=== PATIENT | female | born 1990 | race Asian ===

== ENCOUNTER 2016-06-17 23:23 | Inpatient (IN) | payer MEDICAID, OTHER ==
[~2016-06-17] VITALS: Ht 157.5 cm; Wt 76.2 kg
[~2016-06-17 23:23] MED LIST: BENZ1TAB10 PO; LITH8SOL PO; RISP3 PO; TOPI100 PO
[2016-06-18 00:04] LABS: BASOPHILS # (AUTO) 0.03 K/uL (0.00-0.20); BASOPHILS % (AUTO) 0.3 % (0.0-2.0); EOSINOPHILS # (AUTO) 0.27 K/uL (0.00-0.70); HEMATOCRIT 39.2 % (36-46); HEMOGLOBIN 13.1 g/dL (12.0-16.0); LYMPHOCYTES # (AUTO) 2.4 K/uL (1.0-4.8); MEAN CORPUSCULAR HEMOGLOBIN 32.1 pg (26.0-34.0); MEAN CORPUSCULAR HGB CONC 33.4 G/dL (31.0-37.0); MEAN CORPUSCULAR VOLUME 96 fL (80-100); MONOCYTES # (AUTO) 0.7 K/uL (0.1-1.0); MONOCYTES % (AUTO) 7.3 % (2.0-9.0); NEUTROPHILS # (AUTO) 6.8 K/uL (1.8-7.7); NEUTROPHILS % (AUTO) 66.9 % (40.0-70.0); PLATELET COUNT (AUTO) 212 K/uL (150-450); RED BLOOD CELL COUNT(AUTO) 4.08 MIL/uL (4.00-5.20); RED CELL DISTRIBUTION WIDTH 13.6 % (11.5-14.5); WHITE BLOOD COUNT (AUTO) 10.2 K/uL (4.5-11.0)
[2016-06-18 00:07] LABS: ANION GAP 12 mmol/L (8-16); CALCIUM, TOTAL 9.6 mg/dL (8.8-10.5); CARBON DIOXIDE 24 mmol/L (22-29); CHLORIDE 104 mmol/L (98-107); GLOMERULAR FILTR. RATE CALC > 60 mL/min (>60); POTASSIUM 3.7 mmol/L (3.5-5.1); SODIUM SERUM 140 mmol/L (136-145); UREA NITROGEN, BLOOD 10 mg/dL (7-18)
[2016-06-18 00:12] LABS: ALANINE AMINOTRANSFERASE 20 U/L (12-78); ASPARTATE AMINOTRANSFERASE 10 U/L (15-37); BILIRUBIN,TOTAL 0.4 mg/dL (0.1-1.0); TOTAL PROTEIN, SERUM 7.7 g/dL (6.4-8.2)
[2016-06-18] MEDS ORDERED: ZOLPIDEM TARTRATE 10 MG TABLET PO PRN (00:45)
[2016-06-18 05:58] VITALS: BP 101/69
[2016-06-18] MEDS ORDERED: PNEUMOCOCCAL VACCINE POLYVALENT 0.5 ML VIAL [PPSV23] IM ONE (06:00)
[2016-06-18 16:23] VITALS: BP 118/71
[2016-06-18] MEDS ORDERED: ACETAMINOPHEN 325 MG TABLET PO PRN (21:45)
[2016-06-19 07:07] VITALS: BP 100/60
[2016-06-19 07:58] VITALS: BP 118/69
[2016-06-19 08:02] LABS: HEMOGLOBIN A1C 4.6 % (4.5-6.2)
[2016-06-19 08:33] LABS: CHOL/HDL RATIO 4.7 (3.9-5.7); THYROID STIMULATING HORMONE 0.7 uIU/mL (0.36-3.74)
[2016-06-19] MEDS: LORazepam 2 MG TABLET PO PRN (12:55)
[2016-06-19] MEDS: OLANZapine 5 MG RAPDIS TABLET PO PRN (12:55)
[2016-06-19 16:00] VITALS: BP 122/63
[2016-06-20 06:38] VITALS: BP 114/60
[2016-06-20 08:54] VITALS: BP 100/50
[2016-06-20] MEDS: TOPIRAMATE 100 MG TABLET PO SCH ×2 (08:57→17:07)
[2016-06-20] MEDS: RisperiDONE 2 MG TABLET PO SCH ×2 (08:57→17:07)
[2016-06-20] MEDS: LITHIUM CITRATE SOLUTION 8 MEQ/5 ML [8 MEQ = 300 MG] UDCUP PO SCH ×3 (08:57→17:07)
[2016-06-20] MEDS: LORazepam 2 MG TABLET PO PRN ×2 (09:12→17:08)
[2016-06-20 16:20] VITALS: BP 106/65
[2016-06-21 06:54] VITALS: BP 102/68
[2016-06-21 08:29] VITALS: BP 100/62
[2016-06-21] MEDS: RisperiDONE 2 MG TABLET PO SCH ×2 (09:36→16:05)
[2016-06-21] MEDS: LORazepam 2 MG TABLET PO PRN (09:36)
[2016-06-21] MEDS: TOPIRAMATE 100 MG TABLET PO SCH ×2 (09:36→16:05)
[2016-06-21] MEDS: LITHIUM CITRATE SOLUTION 8 MEQ/5 ML [8 MEQ = 300 MG] UDCUP PO SCH ×3 (09:37→16:05)
[2016-06-21 16:25] VITALS: BP 105/69
[2016-06-22 05:23] VITALS: BP 104/63
[2016-06-22 08:02] VITALS: BP 108/66
[2016-06-22] MEDS: LITHIUM CITRATE SOLUTION 8 MEQ/5 ML [8 MEQ = 300 MG] UDCUP PO SCH ×3 (09:44→16:01)
[2016-06-22] MEDS: LORazepam 2 MG TABLET PO PRN (09:45)
[2016-06-22] MEDS: RisperiDONE 2 MG TABLET PO SCH ×2 (09:45→16:01)
[2016-06-22] MEDS: TOPIRAMATE 100 MG TABLET PO SCH ×2 (09:45→16:01)
[2016-06-22 16:07] VITALS: BP 100/76
[2016-06-23 07:19] VITALS: BP 110/78
[2016-06-23] MEDS: TOPIRAMATE 100 MG TABLET PO SCH ×2 (08:11→16:03)
[2016-06-23] MEDS: LITHIUM CITRATE SOLUTION 8 MEQ/5 ML [8 MEQ = 300 MG] UDCUP PO SCH ×3 (08:11→16:03)
[2016-06-23] MEDS: RisperiDONE 2 MG TABLET PO SCH ×2 (08:11→16:03)
[2016-06-23] MEDS: OLANZapine 5 MG RAPDIS TABLET PO PRN (08:12)
[2016-06-23 08:26] VITALS: BP 111/67
[2016-06-23 16:00] VITALS: BP 109/65
[2016-06-24 07:10] VITALS: BP 102/62
[2016-06-24] MEDS: LORazepam 2 MG TABLET PO PRN (08:01)
[2016-06-24] MEDS: LITHIUM CITRATE SOLUTION 8 MEQ/5 ML [8 MEQ = 300 MG] UDCUP PO SCH ×3 (08:02→16:32)
[2016-06-24] MEDS: TOPIRAMATE 100 MG TABLET PO SCH ×2 (08:02→16:32)
[2016-06-24] MEDS: OLANZapine 5 MG RAPDIS TABLET PO PRN (08:02)
[2016-06-24] MEDS: RisperiDONE 2 MG TABLET PO SCH ×2 (08:02→16:31)
[2016-06-25 05:49] VITALS: BP 112/74
[2016-06-25 08:14] VITALS: BP 140/59
[2016-06-25] MEDS: RisperiDONE 2 MG TABLET PO SCH ×2 (08:50→17:15)
[2016-06-25] MEDS: TOPIRAMATE 100 MG TABLET PO SCH ×2 (08:50→17:15)
[2016-06-25] MEDS: LITHIUM CITRATE SOLUTION 8 MEQ/5 ML [8 MEQ = 300 MG] UDCUP PO SCH ×3 (08:50→17:15)
[2016-06-25] MEDS: LORazepam 2 MG TABLET PO PRN (08:50)
[2016-06-25] MEDS: OLANZapine 5 MG RAPDIS TABLET PO PRN (08:50)
[2016-06-25 16:29] VITALS: BP 102/60
[2016-06-26 05:11] VITALS: BP 109/63
[2016-06-26 08:14] VITALS: BP 117/73
[2016-06-26] MEDS: LITHIUM CITRATE SOLUTION 8 MEQ/5 ML [8 MEQ = 300 MG] UDCUP PO SCH ×3 (08:35→16:41)
[2016-06-26] MEDS: RisperiDONE 2 MG TABLET PO SCH ×2 (08:35→16:41)
[2016-06-26] MEDS: TOPIRAMATE 100 MG TABLET PO SCH ×2 (08:35→16:41)
[2016-06-26 16:02] VITALS: BP 127/72
[2016-06-26] MEDS ORDERED: LORazepam 2 MG/ML VIAL ONE (17:24)
[2016-06-26] MEDS ORDERED: HALOPERIDOL LACTATE 5 MG/ML VIAL ONE (17:24)
[2016-06-26] MEDS ORDERED: DiphenhydrAMINE HCL 50 MG/ML VIAL ONE (17:24)
[2016-06-26] MEDS ORDERED: DiphenhydrAMINE HCL 50 MG/ML VIAL IM ONE (17:30)
[2016-06-26] MEDS ORDERED: LORazepam 2 MG/ML VIAL IM ONE (17:30)
[2016-06-26] MEDS ORDERED: HALOPERIDOL LACTATE 5 MG/ML VIAL IM ONE (17:30)
[2016-06-27 06:44] VITALS: BP 114/60
[2016-06-27 08:09] VITALS: BP 99/66
[2016-06-27] MEDS: RisperiDONE 3 MG TABLET PO SCH ×2 (09:05→16:26)
[2016-06-27] MEDS: TOPIRAMATE 100 MG TABLET PO SCH ×2 (09:05→16:26)
[2016-06-27] MEDS: LORazepam 2 MG TABLET PO PRN (09:05)
[2016-06-27] MEDS: LITHIUM CITRATE SOLUTION 8 MEQ/5 ML [8 MEQ = 300 MG] UDCUP PO SCH ×3 (09:05→16:26)
[2016-06-27 16:17] VITALS: BP 110/74
[2016-06-28 05:53] VITALS: BP 108/68
[2016-06-28 08:08] VITALS: BP 111/68
[2016-06-28] MEDS: IBUPROFEN 400 MG TABLET PO PRN (08:53)
[2016-06-28] MEDS: RisperiDONE 3 MG TABLET PO SCH ×2 (08:53→16:22)
[2016-06-28] MEDS: LORazepam 2 MG TABLET PO PRN (08:53)
[2016-06-28] MEDS: LITHIUM CITRATE SOLUTION 8 MEQ/5 ML [8 MEQ = 300 MG] UDCUP PO SCH ×3 (08:53→16:22)
[2016-06-28] MEDS: TOPIRAMATE 100 MG TABLET PO SCH ×2 (08:53→16:22)
[2016-06-28 16:00] VITALS: BP 124/65
[2016-06-29 07:14] VITALS: BP 129/78
[2016-06-29] MEDS: IBUPROFEN 400 MG TABLET PO PRN ×3 (07:22→17:22)
[2016-06-29 08:20] VITALS: BP 129/65
[2016-06-29] MEDS: LITHIUM CITRATE SOLUTION 8 MEQ/5 ML [8 MEQ = 300 MG] UDCUP PO SCH ×3 (08:35→16:04)
[2016-06-29] MEDS: TOPIRAMATE 100 MG TABLET PO SCH ×2 (08:36→16:04)
[2016-06-29] MEDS: RisperiDONE 3 MG TABLET PO SCH ×2 (08:36→16:04)
[2016-06-29] MEDS: LORazepam 2 MG TABLET PO PRN ×2 (09:15→17:20)
[2016-06-29 13:40] VITALS: BP 122/73
[2016-06-29 16:00] VITALS: BP 110/66
[2016-06-30 05:57] VITALS: BP 112/70
[2016-06-30] MEDS: IBUPROFEN 400 MG TABLET PO PRN ×2 (06:08→14:40)
[2016-06-30] MEDS: LITHIUM CITRATE SOLUTION 8 MEQ/5 ML [8 MEQ = 300 MG] UDCUP PO SCH ×3 (08:44→16:44)
[2016-06-30] MEDS: TOPIRAMATE 100 MG TABLET PO SCH ×2 (08:44→16:44)
[2016-06-30] MEDS: RisperiDONE 3 MG TABLET PO SCH ×2 (08:44→16:44)
[2016-06-30] MEDS: LORazepam 2 MG TABLET PO PRN (09:09)
[2016-06-30 09:27] VITALS: BP 107/57
[2016-06-30 14:42] VITALS: BP 110/64
[2016-06-30 16:19] VITALS: BP 110/65
[2016-07-01 03:23] VITALS: BP 105/67
[2016-07-01] MEDS: RisperiDONE 3 MG TABLET PO SCH ×2 (08:55→16:34)
[2016-07-01] MEDS: IBUPROFEN 400 MG TABLET PO PRN (08:55)
[2016-07-01] MEDS: TOPIRAMATE 100 MG TABLET PO SCH ×2 (08:55→16:34)
[2016-07-01] MEDS: LITHIUM CITRATE SOLUTION 8 MEQ/5 ML [8 MEQ = 300 MG] UDCUP PO SCH ×3 (08:55→16:34)
[2016-07-01] MEDS: LORazepam 2 MG TABLET PO PRN (08:56)
[2016-07-01 16:00] VITALS: BP 103/65
[2016-07-02 05:23] VITALS: BP 111/71
[2016-07-02] MEDS: LITHIUM CITRATE SOLUTION 8 MEQ/5 ML [8 MEQ = 300 MG] UDCUP PO SCH ×3 (08:53→16:30)
[2016-07-02] MEDS: RisperiDONE 3 MG TABLET PO SCH ×2 (08:53→16:30)
[2016-07-02] MEDS: TOPIRAMATE 100 MG TABLET PO SCH ×2 (08:54→16:30)
[2016-07-02] MEDS: LORazepam 2 MG TABLET PO PRN (08:54)
[2016-07-02 09:24] VITALS: BP 110/76
[2016-07-02 16:07] VITALS: BP 113/69
[2016-07-03 06:44] VITALS: BP 114/71
[2016-07-03] MEDS: RisperiDONE 3 MG TABLET PO SCH ×2 (08:17→16:14)
[2016-07-03] MEDS: LITHIUM CITRATE SOLUTION 8 MEQ/5 ML [8 MEQ = 300 MG] UDCUP PO SCH ×3 (08:17→16:14)
[2016-07-03] MEDS: TOPIRAMATE 100 MG TABLET PO SCH ×2 (08:17→16:14)
[2016-07-03] MEDS: LORazepam 2 MG TABLET PO PRN (08:36)
[2016-07-03 08:40] VITALS: BP 116/62
[2016-07-03] MEDS ORDERED: PERMETHRIN 5% 60 GM CREAM TP ONE (10:00)
[2016-07-03] MEDS ORDERED: PERMETHRIN 1% 60 ML LOTION TP ONE (12:00)
[2016-07-03 16:31] VITALS: BP 121/67
[2016-07-04 06:31] VITALS: BP 108/69
[2016-07-04] MEDS: LITHIUM CITRATE SOLUTION 8 MEQ/5 ML [8 MEQ = 300 MG] UDCUP PO SCH ×3 (08:13→16:33)
[2016-07-04] MEDS: TOPIRAMATE 100 MG TABLET PO SCH ×2 (08:13→16:33)
[2016-07-04] MEDS: RisperiDONE 3 MG TABLET PO SCH ×2 (08:13→16:33)
[2016-07-04 08:34] VITALS: BP 118/58
[2016-07-04] MEDS: LORazepam 2 MG TABLET PO PRN (09:09)
[2016-07-04 16:25] VITALS: BP 102/60
[2016-07-05 04:00] VITALS: BP 114/78
[2016-07-05 08:22] VITALS: BP 121/69
[2016-07-05] MEDS: TOPIRAMATE 100 MG TABLET PO SCH ×2 (08:56→16:10)
[2016-07-05] MEDS: RisperiDONE 3 MG TABLET PO SCH ×2 (08:56→16:10)
[2016-07-05] MEDS: LITHIUM CITRATE SOLUTION 8 MEQ/5 ML [8 MEQ = 300 MG] UDCUP PO SCH ×3 (08:57→16:10)
[2016-07-05 16:10] VITALS: BP 113/71
[2016-07-05] MEDS ORDERED: *CLINICAL-RX DOSING [ENTER DRUG IN COMMENTS] CLINICAL ONE (17:30)
[2016-07-06 05:19] VITALS: BP 123/84
[2016-07-06] MEDS: TOPIRAMATE 100 MG TABLET PO SCH ×2 (08:08→16:22)
[2016-07-06] MEDS: RisperiDONE 3 MG TABLET PO SCH ×2 (08:08→16:22)
[2016-07-06] MEDS: OLANZapine 5 MG RAPDIS TABLET PO PRN (08:08)
[2016-07-06] MEDS: LITHIUM CITRATE SOLUTION 8 MEQ/5 ML [8 MEQ = 300 MG] UDCUP PO SCH ×3 (08:08→16:22)
[2016-07-06] MEDS: LORazepam 2 MG TABLET PO PRN (08:08)
[2016-07-06 08:51] VITALS: BP 110/69
[2016-07-06] MEDS ORDERED: IVERMECTIN 3 MG TABLET PO ONE (12:00)
[2016-07-06 16:29] VITALS: BP 109/62
[2016-07-07 03:29] VITALS: BP 110/70
[2016-07-07] MEDS: TOPIRAMATE 100 MG TABLET PO SCH ×2 (08:07→16:05)
[2016-07-07] MEDS: LORazepam 2 MG TABLET PO PRN (08:07)
[2016-07-07] MEDS: OLANZapine 5 MG RAPDIS TABLET PO PRN (08:07)
[2016-07-07] MEDS: RisperiDONE 3 MG TABLET PO SCH ×2 (08:07→16:05)
[2016-07-07] MEDS: LITHIUM CITRATE SOLUTION 8 MEQ/5 ML [8 MEQ = 300 MG] UDCUP PO SCH ×3 (08:07→16:05)
[2016-07-07 08:32] VITALS: BP 125/63
[2016-07-07] MEDS ORDERED: HALOPERIDOL LACTATE 5 MG/ML VIAL IM ONE (12:00)
[2016-07-07] MEDS ORDERED: LORazepam 2 MG/ML VIAL IM ONE (12:00)
[2016-07-07] MEDS ORDERED: DiphenhydrAMINE HCL 50 MG/ML VIAL IM ONE (12:00)
[2016-07-07 16:25] VITALS: BP 118/80
[2016-07-08 04:35] VITALS: BP 114/76
[2016-07-08] MEDS: LORazepam 2 MG TABLET PO PRN (08:36)
[2016-07-08] MEDS: RisperiDONE 3 MG TABLET PO SCH (08:36)
[2016-07-08] MEDS: TOPIRAMATE 100 MG TABLET PO SCH (08:36)
[2016-07-08] MEDS: OLANZapine 5 MG RAPDIS TABLET PO PRN (08:36)
[2016-07-08] MEDS: LITHIUM CITRATE SOLUTION 8 MEQ/5 ML [8 MEQ = 300 MG] UDCUP PO SCH ×2 (08:36→13:42)
[2016-07-08 08:45] VITALS: BP 118/72
== END 2016-07-08 16:15 | disposition home or self-care (01) | DRG 750 ==
LOC: EMS 23:24 → B3A 06-18 02:43
PROVIDERS: ADMIT Psychiatry & Neurology Psychiatry; ATTEND Psychiatry & Neurology Psychiatry
PROC: 3E0234Z Introduction of Serum, Toxoid and Vaccine into Muscle, Percutaneous Approach (ICD-10-PCS; principal; 2016-06-19)
DX: F20.0 Paranoid schizophrenia (principal); R56.9 Unspecified convulsions; I10 Essential (primary) hypertension; E78.5 Hyperlipidemia, unspecified; F17.210 Nicotine dependence, cigarettes, uncomplicated; F12.90 Cannabis use, unspecified, uncomplicated; E03.9 Hypothyroidism, unspecified; F19.10 Other psychoactive substance abuse, uncomplicated; Z71.51 Drug abuse counseling and surveillance of drug abuser; Z23 Encounter for immunization; Z91.013 Allergy to seafood
CPT/HCPCS: 83036; 84443; 90471; 99285; G0480; J1200; J1630; J2060

== ENCOUNTER 2016-08-08 19:57 | Emergency (ER) | payer MEDICAID, OTHER ==
[~2016-08-08] VITALS: Ht 160 cm; Wt 76.8 kg
[~2016-08-08 19:57] MED LIST changes: -BENZ1TAB10 PO
[2016-08-08 22:18] LABS: BASOPHILS % (AUTO) 0.3 % (0.0-2.0); EOSINOPHILS % (AUTO) 3.2 % (1.0-6.0); HEMATOCRIT 37.4 % (36-46); HEMOGLOBIN 12.7 g/dL (12.0-16.0); LYMPHOCYTES # (AUTO) 2.7 K/uL (1.0-4.8); LYMPHOCYTES % (AUTO) 26.9 % (22.0-44.0); MEAN CORPUSCULAR HEMOGLOBIN 32.7 pg (26.0-34.0); MEAN CORPUSCULAR HGB CONC 33.9 G/dL (31.0-37.0); MEAN CORPUSCULAR VOLUME 97 fL (80-100); MONOCYTES # (AUTO) 0.8 K/uL (0.1-1.0); MONOCYTES % (AUTO) 8.2 % (2.0-9.0); NEUTROPHILS # (AUTO) 6.2 K/uL (1.8-7.7); NEUTROPHILS % (AUTO) 61.4 % (40.0-70.0); PLATELET COUNT (AUTO) 243 K/uL (150-450); RED BLOOD CELL COUNT(AUTO) 3.87 MIL/uL (4.00-5.20); RED CELL DISTRIBUTION WIDTH 15.1 % (11.5-14.5); WHITE BLOOD COUNT (AUTO) 10.1 K/uL (4.5-11.0)
[2016-08-08 22:29] LABS: ANION GAP 10 mmol/L (8-16); CALCIUM, TOTAL 9.2 mg/dL (8.8-10.5); CARBON DIOXIDE 23 mmol/L (22-29); CHLORIDE 106 mmol/L (98-107); CREATININE 1.05 mg/dL (0.60-1.30); GLOMERULAR FILTR. RATE CALC > 60 mL/min (>60); POTASSIUM 3.3 mmol/L (3.5-5.1); SODIUM SERUM 139 mmol/L (136-145); UREA NITROGEN, BLOOD 10 mg/dL (7-18)
[2016-08-08 22:32] LABS: ALANINE AMINOTRANSFERASE 15 U/L (12-78); ALBUMIN 4.2 g/dL (3.4-5.0); ASPARTATE AMINOTRANSFERASE 10 U/L (15-37); BILIRUBIN,TOTAL 0.6 mg/dL (0.1-1.0); TOTAL PROTEIN, SERUM 7.4 g/dL (6.4-8.2)
[2016-08-08 23:48] VITALS: BP 119/76
== END 2016-08-08 23:49 | disposition home or self-care (01) ==
LOC: EMS 20:00
DX: F25.9 Schizoaffective disorder, unspecified (principal); F17.210 Nicotine dependence, cigarettes, uncomplicated; F12.90 Cannabis use, unspecified, uncomplicated; Z02.89 Encounter for other administrative examinations; Z91.018 Allergy to other foods
CPT/HCPCS: 36415; 80053; 85025; 99284; G0480

== ENCOUNTER 2016-09-27 19:04 | Emergency (ER) | payer MEDICAID, OTHER ==
[~2016-09-27] VITALS: Ht 160 cm; Wt 72.7 kg
[~2016-09-27 19:04] MED LIST changes: +BENZ1TAB10 PO; +FERR-89 PO; +FLUO-191 PO; +LITH300C3 PO; -LITH8SOL PO; +NALT50 PO; +PALI234D IM; -RISP3 PO
[2016-09-27 19:58] LABS: BASOPHILS % (AUTO) 0.3 % (0.0-2.0); EOSINOPHILS % (AUTO) 6.1 % (1.0-6.0); HEMATOCRIT 39.1 % (36-46); HEMOGLOBIN 13.1 g/dL (12.0-16.0); LYMPHOCYTES # (AUTO) 1.6 K/uL (1.0-4.8); LYMPHOCYTES % (AUTO) 14.5 % (22.0-44.0); MEAN CORPUSCULAR HEMOGLOBIN 32.4 pg (26.0-34.0); MEAN CORPUSCULAR HGB CONC 33.6 G/dL (31.0-37.0); MEAN CORPUSCULAR VOLUME 97 fL (80-100); MONOCYTES # (AUTO) 1.1 K/uL (0.1-1.0); MONOCYTES % (AUTO) 9.5 % (2.0-9.0); NEUTROPHILS # (AUTO) 7.8 K/uL (1.8-7.7); NEUTROPHILS % (AUTO) 69.6 % (40.0-70.0); PLATELET COUNT (AUTO) 213 K/uL (150-450); RED BLOOD CELL COUNT(AUTO) 4.05 MIL/uL (4.00-5.20); RED CELL DISTRIBUTION WIDTH 15.8 % (11.5-14.5); WHITE BLOOD COUNT (AUTO) 11.2 K/uL (4.5-11.0)
[2016-09-27 20:11] LABS: ANION GAP 12 mmol/L (8-16); CARBON DIOXIDE 22 mmol/L (22-29); CHLORIDE 106 mmol/L (98-107); CREATININE 1.12 mg/dL (0.60-1.30); GLOMERULAR FILTR. RATE CALC 58 mL/min (>60); POTASSIUM 3.3 mmol/L (3.5-5.1); SODIUM SERUM 140 mmol/L (136-145); UREA NITROGEN, BLOOD 7 mg/dL (7-18)
[2016-09-27 20:17] LABS: ALANINE AMINOTRANSFERASE 15 U/L (12-78); ALBUMIN 4.3 g/dL (3.4-5.0); ASPARTATE AMINOTRANSFERASE 12 U/L (15-37); BILIRUBIN,TOTAL 0.6 mg/dL (0.1-1.0); TOTAL PROTEIN, SERUM 7.6 g/dL (6.4-8.2)
[2016-09-27 20:19] LABS: LITHIUM 1.14 mmol/L (0.60-1.20)
[2016-09-27 22:55] VITALS: BP 112/65
== END 2016-09-28 | disposition home or self-care (01) ==
LOC: EMS 19:07
DX: R44.0 Auditory hallucinations (principal); R42 Dizziness and giddiness; F20.9 Schizophrenia, unspecified; F17.210 Nicotine dependence, cigarettes, uncomplicated; F12.90 Cannabis use, unspecified, uncomplicated; Z91.013 Allergy to seafood
CPT/HCPCS: 36415; 80053; 80178; 80307; 84703; 85025; 93005; 99285; G0480

== ENCOUNTER 2016-12-24 15:18 | Emergency (ER) | payer OTHER ==
[~2016-12-24] VITALS: Ht 154.9 cm; Wt 70.5 kg
[~2016-12-24 15:18] MED LIST changes: -NALT50 PO; +NALT50TA6 PO; -TOPI100 PO; +TOPI100T37 PO
[2016-12-24 17:42] LABS: BASOPHILS % (AUTO) 0.3 % (0.0-2.0); EOSINOPHILS % (AUTO) 2.7 % (1.0-6.0); HEMATOCRIT 39.7 % (36-46); HEMOGLOBIN 13.3 g/dL (12.0-16.0); LYMPHOCYTES # (AUTO) 2.1 K/uL (1.0-4.8); LYMPHOCYTES % (AUTO) 26.4 % (22.0-44.0); MEAN CORPUSCULAR HEMOGLOBIN 32.1 pg (26.0-34.0); MEAN CORPUSCULAR HGB CONC 33.6 G/dL (31.0-37.0); MEAN CORPUSCULAR VOLUME 95 fL (80-100); MONOCYTES # (AUTO) 0.6 K/uL (0.1-1.0); MONOCYTES % (AUTO) 7.1 % (2.0-9.0); NEUTROPHILS % (AUTO) 63.5 % (40.0-70.0); PLATELET COUNT (AUTO) 254 K/uL (150-450); RED BLOOD CELL COUNT(AUTO) 4.16 MIL/uL (4.00-5.20); RED CELL DISTRIBUTION WIDTH 14.6 % (11.5-14.5)
[2016-12-24 18:12] LABS: ANION GAP 13 mmol/L (8-16); CALCIUM, TOTAL 9.1 mg/dL (8.8-10.5); CARBON DIOXIDE 21 mmol/L (22-29); CHLORIDE 108 mmol/L (98-107); CREATININE 0.85 mg/dL (0.60-1.30); GLOMERULAR FILTR. RATE CALC > 60 mL/min (>60); GLUCOSE,RANDOM 105 mg/dL (70-110); POTASSIUM 3.3 mmol/L (3.5-5.1); SODIUM SERUM 142 mmol/L (136-145); UREA NITROGEN, BLOOD 10 mg/dL (7-18)
[2016-12-24 18:20] LABS: ALANINE AMINOTRANSFERASE 19 U/L (12-78); ALBUMIN 4.2 g/dL (3.4-5.0); ALKALINE PHOSPHATASE 71 U/L (46-116); ASPARTATE AMINOTRANSFERASE 17 U/L (15-37); BILIRUBIN,TOTAL 0.3 mg/dL (0.1-1.0); TOTAL PROTEIN, SERUM 7.8 g/dL (6.4-8.2)
[2016-12-24 18:48] LABS: AMPHET/METH SCREEN,URINE NEGATIVE (NEGATIVE); BARBITURATE SCREEN, URINE NEGATIVE (NEGATIVE); BENZODIAZEPINES SCREEN,URINE NEGATIVE (NEGATIVE); CANNABINOID SCREEN,URINE NEGATIVE (NEGATIVE); COCAINE SCREEN,URINE NEGATIVE (NEGATIVE); METHADONE SCREEN, URINE NEGATIVE (NEGATIVE); OPIATE SCREEN,URINE NEGATIVE (NEGATIVE)
[2016-12-24 18:49] LABS: PHENCYCLIDINE SCREEN,URINE NEGATIVE (NEGATIVE)
[2016-12-24] MEDS ORDERED: POTASSIUM CHLORIDE 20 MEQ ER TABLET PO ONE (19:00)
[2016-12-24] MEDS ORDERED: HALOPERIDOL 5 MG TABLET PO ONE (19:45)
[2016-12-24 20:16] VITALS: BP 124/77
== END 2016-12-24 20:53 | disposition home or self-care (01) ==
LOC: EMS 15:24
DX: F20.9 Schizophrenia, unspecified (principal); F12.10 Cannabis abuse, uncomplicated; F17.210 Nicotine dependence, cigarettes, uncomplicated; Z91.013 Allergy to seafood
CPT/HCPCS: 36415; 80053; 80307; 85025; 99284; G0480

== ENCOUNTER 2017-12-12 14:32 | Inpatient (IN) | payer MEDICAID, OTHER ==
[~2017-12-12] VITALS: Ht 154.9 cm; Wt 67.8 kg
[~2017-12-12 14:32] MED LIST changes: +DIVA500T52 PO; -FERR-89 PO; -FLUO-191 PO; -LITH300C3 PO; +LITH600 PO; +NALT50TA PO; -NALT50TA6 PO; +OLAN5TAB30 PO; -PALI234D IM; -TOPI100T37 PO
[2017-12-12 16:25] LABS: BASOPHILS % (AUTO) 0.6 % (0.0-2.0); EOSINOPHILS % (AUTO) 4.1 % (1.0-6.0); HEMATOCRIT 38.8 % (36-46); HEMOGLOBIN 13.1 g/dL (12.0-16.0); LYMPHOCYTES # (AUTO) 2.3 K/uL (1.0-4.8); MEAN CORPUSCULAR HEMOGLOBIN 32.5 pg (26.0-34.0); MEAN CORPUSCULAR HGB CONC 33.9 G/dL (31.0-37.0); MEAN CORPUSCULAR VOLUME 96 fL (80-100); MONOCYTES # (AUTO) 0.6 K/uL (0.1-1.0); MONOCYTES % (AUTO) 7.6 % (2.0-9.0); NEUTROPHILS # (AUTO) 4.9 K/uL (1.8-7.7); NEUTROPHILS % (AUTO) 59.7 % (40.0-70.0); PLATELET COUNT (AUTO) 309 K/uL (150-450); RED BLOOD CELL COUNT(AUTO) 4.04 MIL/uL (4.00-5.20); RED CELL DISTRIBUTION WIDTH 13.3 % (11.5-14.5)
[2017-12-12 16:34] LABS: ANION GAP 8 mmol/L (8-16); CALCIUM, TOTAL 9.5 mg/dL (8.8-10.5); CARBON DIOXIDE 28 mmol/L (22-29); CHLORIDE 104 mmol/L (98-107); CREATININE 0.66 mg/dL (0.60-1.30); GLOMERULAR FILTR. RATE CALC > 60 mL/min (>60); GLUCOSE,RANDOM 85 mg/dL (70-110); POTASSIUM 3.9 mmol/L (3.5-5.1); SODIUM SERUM 140 mmol/L (136-145); UREA NITROGEN, BLOOD 8 mg/dL (7-18)
[2017-12-12 16:40] LABS: ALANINE AMINOTRANSFERASE 33 U/L (12-78); ALBUMIN 3.7 g/dL (3.4-5.0); ALKALINE PHOSPHATASE 81 U/L (46-116); ASPARTATE AMINOTRANSFERASE 22 U/L (15-37); BILIRUBIN,TOTAL 0.3 mg/dL (0.1-1.0); TOTAL PROTEIN, SERUM 7.3 g/dL (6.4-8.2)
[2017-12-12] MEDS ORDERED: LORazepam 2 MG TABLET PO ONE (16:45)
[2017-12-12] MEDS ORDERED: OLANZapine 5 MG RAPDIS TABLET PO ONE (16:45)
[2017-12-12 16:54] LABS: LITHIUM < 0.20 mmol/L (0.60-1.20)
[2017-12-12 16:59] LABS: VALPROIC ACID < 3 mcg/mL (50-100)
[2017-12-12] MEDS ORDERED: ZOLPIDEM TARTRATE 10 MG TABLET PO PRN (17:45)
[2017-12-12 19:39] VITALS: BP 104/65
[2017-12-12] MEDS ORDERED: DOCUSATE SODIUM 100 MG CAPSULE PO PRN (20:00)
[2017-12-12] MEDS ORDERED: MAGNESIUM HYDROXIDE SUSPENSION 30 ML UDCUP PO PRN (20:00)
[2017-12-12] MEDS ORDERED: ALBUTEROL SULFATE HFA 90 MCG/PUFF 8 GM INHALER IH PRN (20:00)
[2017-12-12] MEDS ORDERED: ONDANSETRON HCL 4 MG TABLET PO PRN (20:00)
[2017-12-12] MEDS ORDERED: GuaiFENesin/D-METHORPHAN [SUGAR-FREE] 200-20MG/10 ML SYRUP UDCUP PO PRN (20:00)
[2017-12-12] MEDS ORDERED: ACETAMINOPHEN 325 MG TABLET PO PRN (20:00)
[2017-12-12] MEDS ORDERED: IBUPROFEN 400 MG TABLET PO PRN (20:00)
[2017-12-12] MEDS ORDERED: CloNIDine HCL 0.1 MG TABLET PO PRN (20:00)
[2017-12-12] MEDS ORDERED: LOPERAMIDE HCL 2 MG CAPSULE PO PRN (20:00)
[2017-12-12] MEDS ORDERED: NICOTINE 14 MG/24 HOUR PATCH TD PRN (20:00)
[2017-12-12] MEDS ORDERED: MAG HYDROX/AL HYDROX/SIMETH ES 30 ML SUSPENSION UDCUP PO PRN (20:00)
[2017-12-12 21:08] LABS: AMPHET/METH SCREEN,URINE POSITIVE (NEGATIVE); BARBITURATE SCREEN, URINE NEGATIVE (NEGATIVE); BENZODIAZEPINES SCREEN,URINE NEGATIVE (NEGATIVE); CANNABINOID SCREEN,URINE NEGATIVE (NEGATIVE); COCAINE SCREEN,URINE NEGATIVE (NEGATIVE); METHADONE SCREEN, URINE NEGATIVE (NEGATIVE); OPIATE SCREEN,URINE NEGATIVE (NEGATIVE)
[2017-12-12 21:13] LABS: PHENCYCLIDINE SCREEN,URINE NEGATIVE (NEGATIVE)
[2017-12-13 06:23] VITALS: BP 107/64
[2017-12-13] MEDS: LORazepam 2 MG TABLET PO PRN (09:55)
[2017-12-13] MEDS: HALOPERIDOL 5 MG TABLET PO PRN (09:55)
[2017-12-13] MEDS: OLANZapine 5 MG TABLET PO SCH (20:36)
[2017-12-14 05:18] VITALS: BP 101/61
[2017-12-14] MEDS: LORazepam 2 MG TABLET PO PRN ×2 (08:31→16:20)
[2017-12-14] MEDS: FLUoxetine HCL 20 MG CAPSULE PO SCH (08:31)
[2017-12-14 08:39] VITALS: BP 107/65
[2017-12-14] MEDS: HALOPERIDOL 5 MG TABLET PO PRN ×2 (08:42→16:20)
[2017-12-14 16:10] VITALS: BP 105/95
[2017-12-14] MEDS: OLANZapine 5 MG TABLET PO SCH (20:10)
[2017-12-15 06:41] VITALS: BP 106/69
[2017-12-15 08:14] VITALS: BP 122/69
[2017-12-15] MEDS: LORazepam 2 MG TABLET PO PRN ×2 (09:11→16:39)
[2017-12-15] MEDS: FLUoxetine HCL 20 MG CAPSULE PO SCH (09:11)
[2017-12-15 09:30] LABS: CHOL/HDL RATIO 4.5 (3.9-5.7); CHOLESTEROL 322 mg/dL (131-200); HCG,QUANTITATIVE < 1 mIU/mL (0-6); HDL CHOLESTEROL 71 mg/dL (40-60); LDL CHOL (CALC.) 230 mg/dL (0-130); TRIGLYCERIDES 106 mg/dL (15-150)
[2017-12-15] MEDS: HALOPERIDOL 5 MG TABLET PO PRN ×2 (09:46→16:40)
[2017-12-15 16:00] VITALS: BP 108/66
[2017-12-15] MEDS: OLANZapine 5 MG TABLET PO SCH (20:48)
[2017-12-16 06:15] VITALS: BP 116/67
[2017-12-16] MEDS: FLUoxetine HCL 20 MG CAPSULE PO SCH (08:17)
[2017-12-16 08:47] VITALS: BP 108/69
[2017-12-16] MEDS ORDERED: BENZ2TAB10 PO (12:47)
[2017-12-16] MEDS: HALOPERIDOL 5 MG TABLET PO PRN (14:59)
[2017-12-16] MEDS: LORazepam 2 MG TABLET PO PRN (14:59)
[2017-12-16 16:00] VITALS: BP 104/65
[2017-12-16] MEDS: PALIPERIDONE 6 MG ER TABLET PO SCH (20:11)
[2017-12-16] MEDS: SIMVASTATIN 20 MG TABLET PO SCH (20:11)
[2017-12-17 00:10] VITALS: BP 117/65
[2017-12-17] MEDS: HALOPERIDOL 5 MG TABLET PO PRN ×2 (06:05→20:50)
[2017-12-17] MEDS: LORazepam 2 MG TABLET PO PRN ×3 (06:05→20:50)
[2017-12-17 08:18] VITALS: BP 124/83
[2017-12-17] MEDS ORDERED: PALIPERIDONE PALMITATE 234 MG/1.5 ML SYRINGE IM ONE (09:00)
[2017-12-17] MEDS: FLUoxetine HCL 20 MG CAPSULE PO SCH (10:10)
[2017-12-17] MEDS ORDERED: HALOPERIDOL LACTATE 5 MG/ML VIAL ONE (15:08)
[2017-12-17] MEDS ORDERED: LORazepam 2 MG/ML VIAL ONE (15:09)
[2017-12-17] MEDS ORDERED: DiphenhydrAMINE HCL 50 MG/ML VIAL ONE (15:09)
[2017-12-17 16:37] VITALS: BP 124/78
[2017-12-17] MEDS: SIMVASTATIN 20 MG TABLET PO SCH (20:50)
[2017-12-17] MEDS: PALIPERIDONE 6 MG ER TABLET PO SCH (20:50)
[2017-12-18] MEDS: FLUoxetine HCL 20 MG CAPSULE PO SCH (08:15)
[2017-12-18] MEDS: LORazepam 2 MG TABLET PO PRN (08:15)
[2017-12-18] MEDS: HALOPERIDOL 5 MG TABLET PO PRN (08:27)
[2017-12-18 08:39] VITALS: BP 118/76
[2017-12-18] MEDS ORDERED: PALI6 PO (10:46)
[2017-12-18] MEDS ORDERED: FLUO20SO9 PO (10:47)
[2017-12-18] MEDS ORDERED: FLUO-191 PO (10:48)
[2017-12-18] MEDS ORDERED: SIMV-260 PO (10:50)
[2018-01-16] MEDS ORDERED: OMEG-135 PO (07:58)
[2018-01-16] MEDS ORDERED: DIVA250T45 PO (07:59)
[2018-01-16] MEDS ORDERED: FLUO-191 PO (08:01)
[2018-01-16] MEDS ORDERED: PALI6 PO (10:34)
== END 2017-12-18 13:15 | disposition home or self-care (01) | DRG 750 ==
LOC: EMS 14:49 → B3A 18:03
PROVIDERS: ADMIT Psychiatry & Neurology Psychiatry; ATTEND Psychiatry & Neurology Psychiatry
DX: F25.0 Schizoaffective disorder, bipolar type (principal); R45.851 Suicidal ideations; F15.20 Other stimulant dependence, uncomplicated; G40.909 Epilepsy, unspecified, not intractable, without status epilepticus; E03.9 Hypothyroidism, unspecified; F17.210 Nicotine dependence, cigarettes, uncomplicated; E78.5 Hyperlipidemia, unspecified; F12.10 Cannabis abuse, uncomplicated; F41.9 Anxiety disorder, unspecified; I10 Essential (primary) hypertension; Z59.0 Homelessness; Z79.899 Other long term (current) drug therapy; Z91.19 Patient's noncompliance with other medical treatment and regimen; Z91.5 Personal history of self-harm; Z78.1 Physical restraint status; Z28.21 Immunization not carried out because of patient refusal; Z91.013 Allergy to seafood
CPT/HCPCS: G0480; J1200; J1630; J2060

== ENCOUNTER 2018-01-08 08:56 | Emergency (ER) | payer MEDICAID, OTHER ==
[~2018-01-08] VITALS: Ht 157.5 cm; Wt 63.6 kg
[~2018-01-08 08:56] MED LIST changes: -BENZ1TAB10 PO; -DIVA500T52 PO; +FLUO-191 PO; -LITH600 PO; -NALT50TA PO; -OLAN5TAB30 PO; +PALI6 PO; +SIMV-260 PO
[2018-01-08] MEDS ORDERED: ACETAMINOPHEN 325 MG TABLET PO ONE (09:15)
[2018-01-08] MEDS ORDERED: LORazepam 2 MG TABLET PO ONE (11:30)
[2018-01-08] MEDS ORDERED: HALOPERIDOL 5 MG TABLET PO ONE (11:30)
[2018-01-08 12:00] VITALS: BP 102/64
== END 2018-01-08 12:03 | disposition home or self-care (01) ==
LOC: EMS 08:57
DX: S00.03XA Contusion of scalp, initial encounter (principal); F20.0 Paranoid schizophrenia; F31.9 Bipolar disorder, unspecified; F17.210 Nicotine dependence, cigarettes, uncomplicated; F12.90 Cannabis use, unspecified, uncomplicated; Z91.013 Allergy to seafood; W50.0XXA Accidental hit or strike by another person, initial encounter; Y93.89 Activity, other specified; Y92.89 Other specified places as the place of occurrence of the external cause; Y99.8 Other external cause status
CPT/HCPCS: 70450

== ENCOUNTER 2018-01-22 21:03 | Inpatient (IN) | payer MEDICAID, OTHER ==
[~2018-01-22] VITALS: Ht 149.9 cm; Wt 68.9 kg
[~2018-01-22 21:03] MED LIST changes: +DIVA250T45 PO; +OMEG-135 PO
[2018-01-23] MEDS ORDERED: ZOLPIDEM TARTRATE 10 MG TABLET PO PRN (02:30)
[2018-01-23 03:48] VITALS: BP 101/81
[2018-01-23] MEDS: LORazepam 2 MG TABLET PO PRN ×3 (05:05→16:48)
[2018-01-23 05:06] VITALS: BP 110/69
[2018-01-23] MEDS ORDERED: DOCUSATE SODIUM 100 MG CAPSULE PO PRN (07:15)
[2018-01-23] MEDS ORDERED: MAGNESIUM HYDROXIDE SUSPENSION 30 ML UDCUP PO PRN (07:15)
[2018-01-23] MEDS ORDERED: LOPERAMIDE HCL 2 MG CAPSULE PO PRN (07:15)
[2018-01-23] MEDS ORDERED: ONDANSETRON HCL 4 MG TABLET PO PRN (07:15)
[2018-01-23] MEDS ORDERED: IBUPROFEN 400 MG TABLET PO PRN (07:15)
[2018-01-23] MEDS ORDERED: GuaiFENesin/D-METHORPHAN [SUGAR-FREE] 200-20MG/10 ML SYRUP UDCUP PO PRN (07:15)
[2018-01-23] MEDS ORDERED: ALBUTEROL SULFATE HFA 90 MCG/PUFF 8 GM INHALER IH PRN (07:15)
[2018-01-23] MEDS ORDERED: MAG HYDROX/AL HYDROX/SIMETH ES 30 ML SUSPENSION UDCUP PO PRN (07:15)
[2018-01-23] MEDS ORDERED: PETROLATUM,WHITE 71 GM JELLY TP PRN (07:15)
[2018-01-23] MEDS ORDERED: NICOTINE 14 MG/24 HOUR PATCH TD PRN (07:15)
[2018-01-23] MEDS ORDERED: CloNIDine HCL 0.1 MG TABLET PO PRN (07:15)
[2018-01-23 08:00] VITALS: BP 118/69
[2018-01-23 08:18] VITALS: BP 118/69
[2018-01-23 16:05] VITALS: BP 110/61
[2018-01-23 16:09] VITALS: BP 110/59
[2018-01-23] MEDS: DIVALPROEX SODIUM 250 MG ER TABLET PO SCH (16:48)
[2018-01-23] MEDS: PALIPERIDONE 6 MG ER TABLET PO SCH (20:10)
[2018-01-24 02:20] VITALS: BP 111/65
[2018-01-24 08:09] VITALS: BP 107/67
[2018-01-24] MEDS: DIVALPROEX SODIUM 250 MG ER TABLET PO SCH ×2 (08:14→16:38)
[2018-01-24] MEDS: FLUoxetine HCL 20 MG CAPSULE PO SCH (08:14)
[2018-01-24 08:25] LABS: BASOPHILS % (AUTO) 0.4 % (0.0-2.0); EOSINOPHILS % (AUTO) 3.3 % (1.0-6.0); HEMATOCRIT 40.7 % (36-46); HEMOGLOBIN 13.9 g/dL (12.0-16.0); LYMPHOCYTES # (AUTO) 1.6 K/uL (1.0-4.8); LYMPHOCYTES % (AUTO) 29.2 % (22.0-44.0); MEAN CORPUSCULAR HEMOGLOBIN 32.7 pg (26.0-34.0); MEAN CORPUSCULAR HGB CONC 34.1 G/dL (31.0-37.0); MEAN CORPUSCULAR VOLUME 96 fL (80-100); MONOCYTES # (AUTO) 0.4 K/uL (0.1-1.0); MONOCYTES % (AUTO) 8.2 % (2.0-9.0); NEUTROPHILS # (AUTO) 3.1 K/uL (1.8-7.7); NEUTROPHILS % (AUTO) 58.9 % (40.0-70.0); PLATELET COUNT (AUTO) 197 K/uL (150-450); RED BLOOD CELL COUNT(AUTO) 4.25 MIL/uL (4.00-5.20); RED CELL DISTRIBUTION WIDTH 14.1 % (11.5-14.5)
[2018-01-24 08:48] LABS: ALANINE AMINOTRANSFERASE 20 U/L (12-78); ALBUMIN 3.9 g/dL (3.4-5.0); ALKALINE PHOSPHATASE 62 U/L (46-116); ANION GAP 5 mmol/L (8-16); ASPARTATE AMINOTRANSFERASE 33 U/L (15-37); BILIRUBIN,TOTAL 0.3 mg/dL (0.1-1.0); CALCIUM, TOTAL 9.1 mg/dL (8.8-10.5); CARBON DIOXIDE 31 mmol/L (22-29); CHLORIDE 106 mmol/L (98-107); CHOL/HDL RATIO 2.9 (3.9-5.7); CHOLESTEROL 191 mg/dL (131-200); CREATININE 0.85 mg/dL (0.60-1.30); FREE T4 (FREE THYROXINE) 0.95 ng/dL (0.76-1.46); GLOMERULAR FILTR. RATE CALC > 60 mL/min (>60); GLUCOSE,RANDOM 98 mg/dL (70-110); HCG,QUANTITATIVE < 1 mIU/mL (0-6); HDL CHOLESTEROL 65 mg/dL (40-60); LDL CHOL (CALC.) 112 mg/dL (0-130); POTASSIUM 3.8 mmol/L (3.5-5.1); SODIUM SERUM 142 mmol/L (136-145); THYROID STIMULATING HORMONE 0.55 uIU/mL (0.36-3.74); TOTAL PROTEIN, SERUM 7.5 g/dL (6.4-8.2); TRIGLYCERIDES 69 mg/dL (15-150); UREA NITROGEN, BLOOD 12 mg/dL (7-18)
[2018-01-24 08:50] LABS: HEMOGLOBIN A1C 4.6 % (4.5-6.2)
[2018-01-24 16:20] VITALS: BP 109/65
[2018-01-24] MEDS: PALIPERIDONE 6 MG ER TABLET PO SCH (20:42)
[2018-01-25 04:17] VITALS: BP 117/71
[2018-01-25 08:20] VITALS: BP 109/75
[2018-01-25] MEDS: DIVALPROEX SODIUM 250 MG ER TABLET PO SCH ×2 (08:20→16:57)
[2018-01-25] MEDS: LORazepam 2 MG TABLET PO PRN (08:20)
[2018-01-25] MEDS: FLUoxetine HCL 20 MG CAPSULE PO SCH (08:20)
[2018-01-25] MEDS: HALOPERIDOL 5 MG TABLET PO PRN (08:54)
[2018-01-25] MEDS: PALIPERIDONE 6 MG ER TABLET PO SCH (20:26)
[2018-01-26 03:54] VITALS: BP 106/72
[2018-01-26] MEDS: HALOPERIDOL 5 MG TABLET PO PRN ×2 (05:06→10:49)
[2018-01-26] MEDS: LORazepam 2 MG TABLET PO PRN ×2 (05:06→10:00)
[2018-01-26 08:08] VITALS: BP 118/72
[2018-01-26] MEDS: FLUoxetine HCL 20 MG CAPSULE PO SCH (08:30)
[2018-01-26] MEDS: DIVALPROEX SODIUM 250 MG ER TABLET PO SCH ×2 (08:30→17:04)
[2018-01-26 16:13] VITALS: BP 107/67
[2018-01-26] MEDS: PALIPERIDONE 6 MG ER TABLET PO SCH (20:10)
[2018-01-27 06:37] VITALS: BP 115/71
[2018-01-27] MEDS: LORazepam 2 MG TABLET PO PRN ×2 (08:22→16:38)
[2018-01-27 08:54] VITALS: BP 117/67
[2018-01-27] MEDS: FLUoxetine HCL 20 MG CAPSULE PO SCH (09:20)
[2018-01-27] MEDS: DIVALPROEX SODIUM 250 MG ER TABLET PO SCH ×2 (09:20→16:38)
[2018-01-27 17:18] VITALS: BP 106/60
[2018-01-27] MEDS: PALIPERIDONE 6 MG ER TABLET PO SCH (21:10)
[2018-01-28 02:56] VITALS: BP 128/72
[2018-01-28 08:11] VITALS: BP 119/68
[2018-01-28] MEDS: FLUoxetine HCL 20 MG CAPSULE PO SCH (08:39)
[2018-01-28] MEDS: LORazepam 2 MG TABLET PO PRN (08:39)
[2018-01-28] MEDS: DIVALPROEX SODIUM 250 MG ER TABLET PO SCH ×2 (08:39→16:39)
[2018-01-28] MEDS: HALOPERIDOL 5 MG TABLET PO PRN (08:39)
[2018-01-28 16:20] VITALS: BP 116/75
[2018-01-28] MEDS: PALIPERIDONE 6 MG ER TABLET PO SCH (20:49)
[2018-01-29 06:25] VITALS: BP 113/63
[2018-01-29 08:22] VITALS: BP 129/74
[2018-01-29] MEDS: DIVALPROEX SODIUM 250 MG ER TABLET PO SCH ×2 (08:47→16:55)
[2018-01-29] MEDS: HALOPERIDOL 5 MG TABLET PO PRN (08:48)
[2018-01-29] MEDS: FLUoxetine HCL 20 MG CAPSULE PO SCH (08:48)
[2018-01-29] MEDS: LORazepam 2 MG TABLET PO PRN (08:48)
[2018-01-29 16:12] VITALS: BP 108/70
[2018-01-29] MEDS: PALIPERIDONE 6 MG ER TABLET PO SCH (20:47)
[2018-01-30 04:39] VITALS: BP 112/68
[2018-01-30] MEDS: FLUoxetine HCL 20 MG CAPSULE PO SCH (08:08)
[2018-01-30] MEDS: LORazepam 2 MG TABLET PO PRN (08:08)
[2018-01-30] MEDS: DIVALPROEX SODIUM 250 MG ER TABLET PO SCH ×2 (08:08→16:33)
[2018-01-30 08:30] VITALS: BP 116/65
[2018-01-30 17:33] VITALS: BP 101/65
[2018-01-30] MEDS: PALIPERIDONE 6 MG ER TABLET PO SCH (20:12)
[2018-01-31 02:47] VITALS: BP 110/70
[2018-01-31 08:10] VITALS: BP 119/71
[2018-01-31] MEDS: FLUoxetine HCL 20 MG CAPSULE PO SCH (08:41)
[2018-01-31] MEDS: LORazepam 2 MG TABLET PO PRN (08:41)
[2018-01-31] MEDS: DIVALPROEX SODIUM 250 MG ER TABLET PO SCH ×2 (08:41→16:53)
[2018-01-31] MEDS ORDERED: TUBERCULIN, PURIFIED PROTEIN DERIVATIVE 5 TU/0.1 ML SYG ID ONE (14:15)
[2018-01-31] MEDS: PALIPERIDONE 6 MG ER TABLET PO SCH (20:05)
[2018-02-01 04:32] VITALS: BP 112/69
[2018-02-01] MEDS: FLUoxetine HCL 20 MG CAPSULE PO SCH (08:06)
[2018-02-01] MEDS: DIVALPROEX SODIUM 250 MG ER TABLET PO SCH ×2 (08:07→17:05)
[2018-02-01] MEDS: LORazepam 2 MG TABLET PO PRN (08:15)
[2018-02-01 08:18] VITALS: BP 126/67
[2018-02-01 10:47] VITALS: BP 117/90
[2018-02-01] MEDS: ACETAMINOPHEN 325 MG TABLET PO PRN (10:47)
[2018-02-01] MEDS: PALIPERIDONE 6 MG ER TABLET PO SCH (20:25)
[2018-02-02 05:55] VITALS: BP 125/78
[2018-02-02 08:19] VITALS: BP 100/64
[2018-02-02] MEDS: DIVALPROEX SODIUM 250 MG ER TABLET PO SCH (08:30)
[2018-02-02] MEDS: FLUoxetine HCL 20 MG CAPSULE PO SCH (08:30)
[2018-02-02 08:39] VITALS: BP 100/63
[2018-02-02] MEDS: ACETAMINOPHEN 325 MG TABLET PO PRN (08:39)
[2018-02-02 09:39] VITALS: BP 105/64
[2018-02-02] MEDS ORDERED: PALI234D IM (12:48)
[2018-02-02] MEDS ORDERED: LORA2TAB2 PO (12:53)
[2018-02-02] MEDS ORDERED: ZOLP10TA7 PO (12:54)
[2018-02-11] MEDS ORDERED: PALIPERIDONE PALMITATE 234 MG/1.5 ML SYRINGE IM ONE (09:00)
== END 2018-02-02 16:30 | disposition home or self-care (01) | DRG 750 ==
LOC: B3A 01-23 02:38
PROVIDERS: ADMIT Psychiatry & Neurology Psychiatry; ATTEND Psychiatry & Neurology Psychiatry
DX: F25.0 Schizoaffective disorder, bipolar type (principal); G40.909 Epilepsy, unspecified, not intractable, without status epilepticus; R45.851 Suicidal ideations; E03.9 Hypothyroidism, unspecified; E78.5 Hyperlipidemia, unspecified; F12.90 Cannabis use, unspecified, uncomplicated; F17.200 Nicotine dependence, unspecified, uncomplicated; F41.9 Anxiety disorder, unspecified; I10 Essential (primary) hypertension; Z59.0 Homelessness; Z91.013 Allergy to seafood; Z79.899 Other long term (current) drug therapy; Z28.21 Immunization not carried out because of patient refusal; Z91.5 Personal history of self-harm
CPT/HCPCS: 83036; 84439; 84443; 87081

== ENCOUNTER 2018-09-30 14:03 | Emergency (ER) | payer MEDICAID, OTHER ==
[~2018-09-30] VITALS: Ht 154.9 cm; Wt 79.1 kg
[~2018-09-30 14:03] MED LIST changes: +LORA2TAB2 PO; -OMEG-135 PO; +PALI234D IM; -SIMV-260 PO; +ZOLP10TA7 PO
[2018-09-30] MEDS ORDERED: RISP2TAB76 PO (14:41)
[2018-09-30] MEDS ORDERED: DIPH25CA85 PO (14:41)
[2018-09-30] MEDS ORDERED: DIVA250T45 PO (14:41)
[2018-09-30] MEDS ORDERED: OLAN20TA2 PO (14:41)
[2018-09-30] MEDS ORDERED: BENZ1TAB10 PO (14:46)
[2018-09-30] MEDS ORDERED: FLUO-125 PO (14:46)
[2018-09-30] MEDS ORDERED: OLAN10TA3 IM (14:46)
[2018-09-30 14:57] LABS: BASOPHILS % (AUTO) 0.7 % (0.0-2.0); EOSINOPHILS % (AUTO) 2.2 % (1.0-6.0); HEMATOCRIT 41.7 % (36-46); HEMOGLOBIN 13.8 g/dL (12.0-16.0); LYMPHOCYTES # (AUTO) 1.6 K/uL (1.0-4.8); LYMPHOCYTES % (AUTO) 32.3 % (22.0-44.0); MEAN CORPUSCULAR HEMOGLOBIN 32.7 pg (26.0-34.0); MEAN CORPUSCULAR VOLUME 99 fL (80-100); MONOCYTES # (AUTO) 0.6 K/uL (0.1-1.0); MONOCYTES % (AUTO) 11.5 % (2.0-9.0); NEUTROPHILS # (AUTO) 2.7 K/uL (1.8-7.7); NEUTROPHILS % (AUTO) 53.3 % (40.0-70.0); PLATELET COUNT (AUTO) 162 K/uL (150-450); RED CELL DISTRIBUTION WIDTH 13.9 % (11.5-14.5)
[2018-09-30 15:10] LABS: ANION GAP 12 mmol/L (8-16); CALCIUM, TOTAL 9.8 mg/dL (8.8-10.5); CARBON DIOXIDE 26 mmol/L (22-29); CHLORIDE 104 mmol/L (98-107); CREATININE 0.87 mg/dL (0.60-1.30); GLOMERULAR FILTR. RATE CALC > 60 mL/min (>60); GLUCOSE,RANDOM 88 mg/dL (70-110); SODIUM SERUM 142 mmol/L (136-145); UREA NITROGEN, BLOOD 12 mg/dL (7-18)
[2018-09-30 15:21] LABS: ALANINE AMINOTRANSFERASE 15 U/L (12-78); ALBUMIN 4.1 g/dL (3.4-5.0); ALKALINE PHOSPHATASE 48 U/L (46-116); ASPARTATE AMINOTRANSFERASE 13 U/L (15-37); BILIRUBIN,TOTAL 0.3 mg/dL (0.1-1.0); HCG,QUANTITATIVE < 1 mIU/mL (0-6); TOTAL PROTEIN, SERUM 7.5 g/dL (6.4-8.2)
[2018-09-30 15:28] LABS: APPEARANCE,URINE CLEAR (CLEAR); BILIRUBIN,URINE NEGATIVE (NEGATIVE); GLUCOSE, URINE (UA) NEGATIVE (NEGATIVE); KETONES,URINE NEGATIVE (NEGATIVE); LEUKOCYTE ESTERASE ,URINE TRACE (NEGATIVE); NITRATE,URINE NEGATIVE (NEGATIVE); OCCULT BLOOD,URINE NEGATIVE (NEGATIVE); PH,URINE 7.5 (5.0-8.0); PROTEIN,URINE NEGATIVE (NEGATIVE); UROBILINOGEN,URINE 0.2 mg/dL (<=1.0)
[2018-09-30 15:33] LABS: AMPHET/METH SCREEN,URINE NEGATIVE (NEGATIVE); BARBITURATE SCREEN, URINE NEGATIVE (NEGATIVE); BENZODIAZEPINES SCREEN,URINE NEGATIVE (NEGATIVE); CANNABINOID SCREEN,URINE NEGATIVE (NEGATIVE); COCAINE SCREEN,URINE NEGATIVE (NEGATIVE); METHADONE SCREEN, URINE NEGATIVE (NEGATIVE); OPIATE SCREEN,URINE NEGATIVE (NEGATIVE); PHENCYCLIDINE SCREEN,URINE NEGATIVE (NEGATIVE)
[2018-09-30 15:42] LABS: BACTERIA,URINE Few /HPF (None Seen); SQUAMOUS EPITHELIAL CELL,UR Moderate /LPF (None Seen)
[2018-09-30 15:43] LABS: RBC,URINE None Seen /HPF (0-2); WBC,URINE 0-2 /HPF (0-5)
[2018-09-30 17:28] VITALS: BP 112/74
== END 2018-09-30 21:05 | disposition home or self-care (01) ==
LOC: EMS 14:03
DX: F25.9 Schizoaffective disorder, unspecified (principal); F31.9 Bipolar disorder, unspecified; F17.210 Nicotine dependence, cigarettes, uncomplicated; F12.90 Cannabis use, unspecified, uncomplicated; Z91.013 Allergy to seafood
CPT/HCPCS: 36415; 80053; 80307; 81001; 84702; 85025; 99284; G0480